=== PATIENT | male | born 1995 | race African-American/Black ===

== ENCOUNTER 2017-11-11 12:50 | Emergency (ER) | payer SELFPAY ==
[~2017-11-11] VITALS: Ht 188 cm; Wt 73.0 kg
[2017-11-11] MEDS ORDERED: ACETAMINOPHEN 325MG TABLET ONE (13:43)
[2017-11-11 14:35] VITALS: BP 131/64
[2017-11-11] MEDS ORDERED: ACETAMINOPHEN 325MG TABLET PO ONE (14:45)
== END 2017-11-11 19:30 | disposition left against medical advice (07) ==
LOC: ER 13:59
DX: R10.10 Upper abdominal pain, unspecified (principal); R11.2 Nausea with vomiting, unspecified
CPT/HCPCS: 99281